=== PATIENT | female | born 1990 | race Two or more races ===

== ENCOUNTER 2018-01-23 18:36 | Emergency (ER) | payer MEDICAID, SELFPAY ==
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
[2018-01-23 18:43] VITALS: BP 124/65; PULSE 87; RESP 16; TEMP 36.6; O2SAT 100; BMI 17.2
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
[2018-01-23 20:21] VITALS: BP 120/60; PULSE 80; RESP 18; TEMP 36.7; O2SAT 99
== END 2018-01-23 20:21 | disposition home or self-care (01) ==
PROVIDERS: Emergency Provider General Practice; Family Provider Nurse Practitioner Family; PCP Nurse Practitioner Family
DX: S06.0X9A Concussion with loss of consciousness of unspecified duration, initial encounter (principal); S89.92XA Unspecified injury of left lower leg, initial encounter; V29.9XXA Motorcycle rider (driver) (passenger) injured in unspecified traffic accident, initial encounter
CPT/HCPCS: 70450; 73030; 73080; 73562; 99281

== ENCOUNTER → 2018-06-25 12:02 | Outpatient (REF) | payer MEDICAID, SELFPAY ==
[2018-06-25 19:13] LABS: Basophils % 0.5 % (0.1-2.0); Eosinophils # 0.1 K/mm3 (0.0-0.4); Eosinophils % 1.7 % (0.1-12.0); Hematocrit 35.3 % (37.0-47.0); Hemoglobin 10.7 g/dL (12.2-16.2); Lymphocytes # 1.7 K/mm3 (0.7-4.5); Lymphocytes % 27.4 K/mm3 (10-50); Mean Corpuscular HGB Conc 30.3 g/dL (31.8-35.4); Mean Corpuscular Hemoglobin 23.6 pg (27.0-31.2); Mean Corpuscular Volume 77.8 fl (81-99); Mean Platelet Volume 9.5 fl (7.4-10.4); Monocytes # 0.4 K/mm3 (0.1-1.0); Neutrophils % 64.4 % (37.0-80.0); Platelet Count 276 K/mm3 (142-424); Red Blood Count 4.54 M/mm3 (4.20-5.40); Red Cell Distribution Width 15.3 % (11.5-17.5); White Blood Count 6.2 K/mm3 (4.8-10.8)
[2018-06-25 19:45] LABS: HCG,Quantitative 0 mIU/mL
[2018-06-25 20:43] LABS: Alanine Aminotransferase 28 U/L (12-78); Albumin/Globulin Ratio 1.1 (1.1-1.8); Alkaline Phosphatase 70 U/L (46-116); Anion Gap 9.9 mEq/L (5-15); Aspartate Amino Transferase 17 U/L (15-37); Bilirubin,Total 1.2 mg/dL (0.2-1.0); Blood Urea Nitrogen 7 mg/dL (7-18); Carbon Dioxide 26 mmol/L (21.0-32.0); Chloride 106 mmol/L (98-107); Creatinine,Serum 0.54 mg/dL (0.55-1.02); Estimated Glomerular Filt Rate 133 ml/min (>60); GFR (African American) 162 ML/MIN (>60); Globulin 3.7 gm/dl (1.3-3.2); Glucose 85 mg/dL (74-106); Potassium 3.9 mmoL/L (3.5-5.1); Sodium 138 mmol/L (136-145); T4 (Thyroxine) 7.8 ug/dl (4.7-13.3); Thyroid Stimulating Hormone 1.56 uIU/ml (0.358-3.740); Total Protein,Serum 7.7 gm/dL (6.4-8.2)
[2018-06-27 18:04] LABS: Prolactin 15.3 ng/mL (4.8-23.3)
== END ==
LOC: LAB 12:02
PROVIDERS: Visit Provider Nurse Practitioner Family
DX: N64.4 Mastodynia (principal); N64.89 Other specified disorders of breast; R53.83 Other fatigue; R52 Pain, unspecified
CPT/HCPCS: 80053; 84146; 84436; 84443; 84702; 85025

== ENCOUNTER → 2018-06-26 09:52 | Outpatient (CLI) | payer MEDICAID, SELFPAY ==
--- NOTE | 2018-06-26 09:53 | US_ITS ---
US breast LT complete INDICATION: Left breast engorgement with pain. No discrete mass ORDERING PHYSICIAN: Birgit Cook PATIENT AGE: 28 years COMPARISON: None TECHNIQUE: Left breast ultrasound with axilla FINDINGS: Echodense tissue noted. No discrete mass or cyst. No ductal dilatation. Small nodes are present in the axilla. IMPRESSION: Negative left breast ultrasound BI-RADS Category: 1 Negative No sonographic abnormalities are evident. If symptoms persist and if there are palpable abnormalities then, mammography may be of further value. (A letter has been sent to the patient regarding results of the study.)
== END ==
PROVIDERS: Family Provider Nurse Practitioner Family; PCP Nurse Practitioner Family; Visit Provider Nurse Practitioner Family
DX: N64.4 Mastodynia (principal)
CPT/HCPCS: 76641

== ENCOUNTER → 2019-12-13 16:45 | Outpatient (CLI) | payer OTHER, SELFPAY ==
[2019-12-13 17:06] LABS: Basophils % 0.6 % (0.1-2.0); Eosinophils # 0.1 K/mm3 (0.0-0.4); Eosinophils % 1.6 % (0.1-12.0); Hematocrit 28.8 % (37.0-47.0); Hemoglobin 8.3 g/dL (12.2-16.2); Lymphocytes % 28.6 % (10-50); Mean Corpuscular HGB Conc 28.8 g/dL (31.8-35.4); Mean Corpuscular Hemoglobin 20.3 pg (27.0-31.2); Mean Corpuscular Volume 70.4 fl (81-99); Mean Platelet Volume 9.3 fl (7.4-10.4); Monocytes # 0.3 K/mm3 (0.1-1.0); Monocytes % 4.3 % (1.7-9.3); Neutrophils # 4.6 K/mm3 (1.8-7.8); Neutrophils % 64.8 % (37.0-80.0); Platelet Count 238 K/mm3 (142-424); Red Cell Distribution Width 17.4 % (11.5-17.5)
[2019-12-15 10:29] LABS: Rapid Plasma Reagin Ab Titer Non Reactive (NonRea<1:1)
[2019-12-15 18:18] LABS: HIV Screen 4th Generation wRfx Non Reactive (Non Reactive); Hepatitis B Surface Antigen Negative (Negative); Hepatitis C Antibody <0.1 s/co ratio (0.0-0.9)
== END ==
PROVIDERS: Visit Provider Nurse Practitioner Obstetrics & Gynecology
DX: Z34.90 Encounter for supervision of normal pregnancy, unspecified, unspecified trimester (principal); Z3A.01 Less than 8 weeks gestation of pregnancy
CPT/HCPCS: 36415; 85025; 86592; 86703; 86762; 86850; 87340; 87380; G0432

== ENCOUNTER → 2019-12-28 14:19 | Outpatient (CLI) | payer OTHER, SELFPAY ==
--- NOTE | 2019-12-28 14:20 | US_ITS ---
PROCEDURE: US OB TRANSVAGINAL CLINICAL INDICATION: US OB Dates COMPARISON: PTV US PELVIS-TRANSVAGINAL ONLY from 12/08/2013 FINDINGS: An intrauterine gestational sac is present with a pole with a crown-rump length of 3.93cm correlating to gestational age of 10weeks 6days. heart tones are present with an FHR of 169bpm. Yolk sac is noted. IMPRESSION: There is a single live intrauterine gestation at 10 weeks 6 days. Estimated due date by Ultrasound is 07/19/2020 Dictated by: Schuyler Duke MD 12/28/2019 19:50 Electronically signed by Schuyler Duke MD in [place] 12/28/2019 19:50
== END ==
PROVIDERS: PCP Nurse Practitioner Family; Visit Provider Nurse Practitioner Obstetrics & Gynecology
DX: O26.841 Uterine size-date discrepancy, first trimester (principal)
CPT/HCPCS: 76801; 76817

== ENCOUNTER → 2020-02-28 12:55 | Outpatient (CLI) | payer OTHER, SELFPAY ==
--- NOTE | 2020-02-28 12:57 | US_ITS ---
PROCEDURE: US OB /MATERNAL DETAIL CLINICAL INDICATION: 20 weeks gestation COMPARISON: US OB TRANSVAGINAL from 12/28/2019 FINDINGS: Single viable intrauterine gestation. Cephalic position. Placenta: Anteriorplacenta grade 1. There is average amount fluid. The cervix appears satisfactory. Closed and measuring 4.6 cm transabdominal in length. Complete survey performed and was unremarkable on the submitted images as in PACS. No discrete anomalies identified on survey imaging by technologist. Active fetus. Three-vessel cord with satisfactory umbilical cord insertion. 4- chamber heart noted. Survey of brain & ventricles Unremarkable. Face and neck survey unremarkable. Diaphragm and chest views unremarkable. Abdomen: Both kidneys noted and unremarkable. Stomach noted and satisfactory. Spine: Survey of the spine satisfactory with no anomalies identified nor imaged. Both arms and legs noted. Amniotic Fluid: Adequate. Maternal adnexa: No significant findings. Measurements: Average ultrasound age 20weeks. Gestational Age 19 weeks 5 days Estimated due date by ultrasound age 0807/17/2020. Estimated weight 310g BPD = 20weeks 2days OFD = 20 weeks 3 days HC = 19weeks 4days AC = 19weeks 5days FL = 20weeks Growth Percentile= 47% Heart Rate = 165bpm Cerebellum = 20weeks 2days Humerus = 20weeks 4days HC/AC is 1.19 CI is 0.78 FL/BPD is 0.68 FL/AC is 0.22 IMPRESSION: There is a single live IUP at 20 weeks 0 days. heart body motion noted. All parameters correlate with no obvious anomalies. Please see above for detail Dictated by: Schuyler Duke MD 02/28/2020 14:43 Electronically signed by Schuyler Duke MD in [place] 02/28/2020 14:43
== END ==
PROVIDERS: PCP Nurse Practitioner Family; Visit Provider Nurse Practitioner Obstetrics & Gynecology
DX: Z34.90 Encounter for supervision of normal pregnancy, unspecified, unspecified trimester (principal)
CPT/HCPCS: 76811

== ENCOUNTER → 2020-04-21 09:16 | Outpatient (CLI) | payer OTHER, SELFPAY ==
[2020-04-21 09:55] LABS: Glucose,Fasting 88 mg/dl (74-100)
[2020-04-21 13:37] LABS: Glucose 1 Hour 95 mg/dL (74-100)
== END ==
PROVIDERS: Visit Provider Nurse Practitioner Obstetrics & Gynecology
DX: Z34.90 Encounter for supervision of normal pregnancy, unspecified, unspecified trimester (principal)
CPT/HCPCS: 36415; 82951

== ENCOUNTER → 2020-06-14 10:27 | Outpatient (CLI) | payer OTHER, SELFPAY ==
--- NOTE | 2020-06-14 10:27 | US_ITS ---
PROCEDURE: US OB BPP W/FET-MAT S/D CLINICAL INDICATION: Measuring Small Small for gestational age COMPARISON: US OB /MATERNAL DETAIL from 02/28/2020 FINDINGS: There is a single live fetus which is in cephalic presentation. The cervix is closed measuring 4 cm transabdominal. Placenta is anterior and grade 2. MAGUE is normal at 10 cm. Biophysical profile is 8 of 8 Measurements: Average ultrasound age 35weeks 1day. Gestational Age 35 weeks 0 days Estimated due date by ultrasound age 0807/18/2020. Estimated weight 2,551g BPD = 35weeks 4days OFD = !Error HC = 35weeks 3days AC = 35weeks 1day FL = 34weeks 2days Growth Percentile= 45% Heart Rate = 130bpm Cerebellum = Humerus = HC/AC is 1.01 CI is 0.79 FL/BPD is 0.76 FL/AC is 0.21 IMPRESSION: Live IUP in cephalic presentation with an average ultrasound age of 35 weeks 1 day. Estimated weight is 2551 g which is 45 percentile. Biophysical profile is 8 of 8 with an MAGUE of 10 cm. Placenta is anterior and grade 2. Dictated by: Schuyler Duke MD 06/14/2020 15:19 Electronically signed by Schuyler Duke MD in [place] 06/14/2020 15:19
== END ==
PROVIDERS: PCP Nurse Practitioner Family; Visit Provider Nurse Practitioner Obstetrics & Gynecology
DX: O36.5990 Maternal care for other known or suspected poor fetal growth, unspecified trimester, not applicable or unspecified (principal)
CPT/HCPCS: 76811; 76816; 76819; 76820

== ENCOUNTER → 2020-06-22 16:06 | Outpatient (CLI) | payer OTHER, SELFPAY | PROVIDERS: Visit Provider Nurse Practitioner Obstetrics & Gynecology | DX: Z34.90 Encounter for supervision of normal pregnancy, unspecified, unspecified trimester (principal) | CPT/HCPCS: 86403 ==

== ENCOUNTER 2020-07-17 05:08 | Inpatient (IN) | payer OTHER, SELFPAY ==
[2020-07-17 05:15] VITALS: BMI 31.0
[2020-07-17 06:27] LABS: Microscopic, Urine URINE MICROSCOPIC (MICROSCOPIC)
[2020-07-17 06:38] LABS: Basophils % 0.3 % (0.1-2.0); Eosinophils # 0.2 K/mm3 (0.0-0.4); Eosinophils % 2.4 % (0.1-12.0); Hematocrit 39.7 % (37.0-47.0); Hemoglobin 13.7 g/dL (12.2-16.2); Lymphocytes # 1.8 K/mm3 (0.7-4.5); Mean Corpuscular HGB Conc 34.6 g/dL (31.8-35.4); Mean Corpuscular Hemoglobin 33.7 pg (27.0-31.2); Mean Corpuscular Volume 97.4 fl (81-99); Mean Platelet Volume 9.6 fl (7.4-10.4); Monocytes # 0.4 K/mm3 (0.1-1.0); Monocytes % 5.6 % (1.7-9.3); Neutrophils # 4.8 K/mm3 (1.8-7.8); Neutrophils % 66.7 % (37.0-80.0); Platelet Count 141 K/mm3 (142-424); Red Blood Count 4.08 M/mm3 (4.20-5.40); Red Cell Distribution Width 14.5 % (11.5-17.5); White Blood Count 7.2 K/mm3 (4.8-10.8)
[2020-07-17 06:49] LABS: Appearance,Urine CLEAR (Clear); Bilirubin,Urine Negative (Negative); Blood, Urine Negative (Negative); Color,Urine YELLOW (Yellow); Glucose,Urine (UA) Negative (Negative); Ketones,Urine Negative (Negative); Leukocyte Esterase,Urine 1+ (Negative); Nitrate,Urine Negative (Negative); Protein,Urine Negative (Negative); Specific Gravity, Urine <= 1.005 (1.005-1.030); Urobilinogen,Urine 0.2 EU/dl (0.2)
[2020-07-17 07:04] LABS: Amphetamine/Metha Screen,Urine Negative ng/ml (<1000)
[2020-07-17 07:05] LABS: Barbiturates Screen,Urine Negative ng/ml (<200); Benzodiazepines Screen,Urine Negative ng/ml (<200); Coronavirus 19 IgG Antibody Negative (Negative); Coronavirus 19 IgM Antibody Negative (Negative)
[2020-07-17 07:06] LABS: Cannabinoid Screen,Urine Negative ng/ml (<50); Cocaine Screen,Urine Negative ng/ml (<300)
[2020-07-17 07:07] LABS: Methadone Screen,Urine Negative ng/ml (<300)
[2020-07-17 07:08] LABS: Opiate Screen,Urine Negative ng/ml (<300); Phencyclidine Screen,Urine Negative ng/ml (<25)
[2020-07-17 07:16] LABS: Bacteria,Urine 1+ /lpf; RBC,Urine Occasional #/hpf (0-3); Squamous Epithelial Cell,Urine 20-50 #/hpf (0-5)
[2020-07-17 07:27] VITALS: BP 121/66; PULSE 75; RESP 18; TEMP 36.5; O2SAT 97
[2020-07-17 07:43] VITALS: BP 112/68; PULSE 82; RESP 18; TEMP 36.7; O2SAT 98; BMI 31.0
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
--- NOTE | 2020-07-17 09:18 | HMH.LABNOT ---
Labor Note - Subjective: Date: 07/17/20 Time: 09:18 regular contraction - Objective: NST:: Reactive Contractions:: every 2-3 minutes Cervical Dilation:: 3-4 Effacement:: 75% Station: -2 Membranes: artificially ruptured - Fetus: Monitoring?: Yes monitoring type:: External - Assessment: Labor progressing?: Yes Cephalopelvic disproportion?: No Patient Problems: All Active Problems (Acute) - Plan: Anesthesia for epidural?: Yes Continue to labor down?: Yes Plan for ?: No Continue to monitor?: Yes Start pushing?: No Comment:: I ruptured her membranes and there was clear fluid. We will expect a vaginal delivery.
--- NOTE | 2020-07-17 11:23 | HMH.LABNOT ---
Labor Note - Subjective: Date: 07/17/20 Time: 11:23 regular contraction - Objective: NST:: Reactive Contractions:: every 2-3 minutes Cervical Dilation:: 4-5 Effacement:: 75% Station: -1 Membranes: artificially ruptured - Fetus: Monitoring?: Yes monitoring type:: External - Assessment: Labor progressing?: Yes Cephalopelvic disproportion?: No Patient Problems: All Active Problems (Acute) - Plan: Anesthesia for epidural?: No Continue to labor down?: Yes Plan for ?: No Continue to monitor?: Yes Start pushing?: No Comment:: She is progressing well. Nonstress test is reactive. She is having regular painful contractions.
[2020-07-17 13:54] LABS: Cord Blood PH 7.38 (7.35-7.45)
--- NOTE | 2020-07-17 13:57 | HMH.DN ---
- Delivery Note Delivery Date:: 07/17/20 Delivery Time:: 13:34 Anesthesia Type: None Was labor medically induced?: Yes Induction method: per pitocin protocol Gestational age (weeks): 39 Infant delivered prior to 39 weeks?: No Infant Gender: Female at 1 minute: 8 at 5 minutes: 9 LAC or MLE?: LAC Delivery Procedure:: She is a 30-year-old 1 para 1 aborta 1 who was 39+ weeks gestational age. She has had a previous large for gestational age with 1/4 degree tear. As result that we elected to induce her labor at 39 weeks. She was started on IV oxytocin had her membranes ruptured. She progressed to full dilation and delivered spontaneously a liveborn female child at 1:34 PM in the afternoon of July 17, 2020. On deliver the head there was a loose nuchal cord which was easily reduced. This was followed by the anterior shoulder and the rest the infant's body atraumatically. The oropharynx and nasopharynx were bulb suctioned. The baby was vigorous. We allowed the cord to continue to pulsate for approximately 1 minute. The cord was then doubly clamped and cut and the was placed on the mother's abdomen for further care. The nurses assigned Apgars of 8 at 1 minute and 9 at 5 minutes. We then obtained cord blood as well as cord pH. pH was 7.38. Using gentle traction on the cord and countertraction on the fundus I was able to easily deliver the placenta intact. Had normal three-vessel cord. There was a first-degree perineal laceration that was repaired with interrupted 3-0 Vicryl Rapide suture. She also had a left labial tear that was repaired with 3-0 Vicryl Rapide suture. I infiltrated the areas with 30 cc of 1% Xylocaine. She has O+ blood, she is rubella immune and was group B streptococcus negative. She plans to breast-feed. Her residential recycle driver Dr. Núñez. Estimated blood loss was 1200 cc. Laceration:: vaginal Placental Delivery Description: Spontaneous
[2020-07-17 16:36] VITALS: BP 105/59; PULSE 77; RESP 18; TEMP 36.6; O2SAT 98
[2020-07-18 06:28] LABS: Hematocrit 33.9 % (37.0-47.0); Hemoglobin 11.6 g/dL (12.2-16.2)
[2020-07-18 08:25] VITALS: BP 103/53; PULSE 87; RESP 18; TEMP 36.7; O2SAT 97
--- NOTE | 2020-07-18 08:28 | HMH.ACPN2 ---
Internal Medicine - PN: Subj *Date: 07/18/20 *Time: 08:28 Interval history: She is doing very well. She is breast-feeding. Her lochia is normal. Her hemoglobin is stable. Exam Vital signs and Labs for Last 24 Hours: Temp Pulse Resp BP Pulse Ox 97.9 F 77 18 105/59 L 98 07/17/20 16:36 07/17/20 16:36 07/17/20 16:36 07/17/20 16:36 07/17/20 16:36 Laboratory Results - last 24 hr 07/17/20 13:49: Cord ABG pH 7.38 07/18/20 06:00: Hgb 11.6 L, Hct 33.9 L I & O for Last 24 hours: Intake & Output 07/15/20 07/16/20 07/17/20 07/18/20 11:59 11:59 11:59 11:59 Weight 159 lb Microbiology Reports for the Last 24 Hours: Microbiology 07/17/20 05:42 Urine,Clean Catch Urine Culture - Preliminary NO GROWTH AFTER 24 HOURS - Constitutional no acute distress - *Routine HEENT Exam Head: Present: normocephalic Eye: Present: EOMI, PERRL ENT: Present: mucous membranes moist Assessment and Plan (1) Normal delivery Current visit: Yes Status: Acute Category: Medical Code(s): O80 - Encounter for full-term uncomplicated delivery - Assessment and plan all Dx Assessment and Plan for all problems:: She is doing very well this morning. We will plan to send her home tomorrow.
[2020-07-18 12:11] VITALS: BP 109/59; PULSE 96; RESP 18; TEMP 36.5; O2SAT 98
[2020-07-18 16:00] VITALS: BP 104/58; PULSE 80; RESP 18; TEMP 36.9; O2SAT 98
[2020-07-19 08:30] VITALS: BP 106/60; PULSE 89; RESP 20; TEMP 36.7; O2SAT 100
--- NOTE | 2020-07-19 10:04 | HMH.OBDCSM ---
General - General Admission date:: 07/17/20 Discharge date: 07/19/20 HPI - History of Present Illness History of present illness: She is a 30-year-old 3 now para 2 aborta 1 who is 39 and 5 weeks gestational age. She had a previous fourth degree tear and a large baby so we elected to deliver her at term. Hospital Course Hospital Course: She was started on IV oxytocin had her membranes ruptured. She progressed to full dilation and delivered spontaneously a liveborn female child at 1:34 PM in the afternoon of July 17, 2020. The baby weighed 7 pounds 12 ounces and was 19 inches long. She had Apgars of 8 at 1 minute and 9 at 5 minutes. She has done well and has remained afebrile throughout her hospitalization. She is eating and drinking and ambulating. She is breast-feeding. She has O+ blood, she is rubella immune and was group B streptococcus negative. Her behavioral health clinician is Dr. Núñez. She is discharged home to follow-up with me in approximately 2 weeks time. She will continue with her vitamins and iron. She was given the usual instructions with respect to limiting her activity, driving and sexual activity. Her condition on discharge is stable and improved Rhogam Administration: Not Indicated Objective Vital signs: Temp Pulse Resp BP Pulse Ox 98.4 F 80 18 104/58 L 98 07/18/20 16:00 07/18/20 16:00 07/18/20 16:00 07/18/20 16:00 07/18/20 16:00 no acute distress - *Routine HEENT Exam Head: Present: normocephalic Eye: Present: EOMI, PERRL ENT: Present: mucous membranes moist DS: Diagnosis - Discharge Diagnosis (1) Normal delivery Status: Acute Discharge Plan - Patient Discharge Instructions ACTIVITY: No heavy lifting DIET: continue same diet Additional Instructions: No heavy lifting, no driving for 2 weeks, nothing in the vagina for 6 weeks. Patient Instructions: Depression, Hemorrhage, DI for Labor and Delivery, Vaginal , DI for Pre-eclampsia, [facility] Post Discharge Instructions, Preventing the Spread of Coronavirus Discharge Instructions - Follow up Plan Follow up with: Timur Mendoza MD [Staff Physician] - 08/09/20 11:00 am Disposition: Home, Self-[facility] Medications: Home Medications Medication Instructions Recorded Confirmed Type Ferrous Sulfate 325 mg PO BID 07/17/20 07/17/20 History Pnv,Calcium 72/Iron,Carb/Folic 1 tab PO DAILY 07/17/20 07/17/20 History [ Plus] Prescriptions/Medication Reconciliation: Continued Pnv,Calcium 72/Iron,Carb/Folic [ Plus] 1 tab PO DAILY Ferrous Sulfate 325 mg PO BID - Problem Reconciliation Problems Reviewed?: Yes
== END 2020-07-19 10:25 | disposition home or self-care (01) | DRG 807 ==
PROVIDERS: Admitting Provider Nurse Practitioner Obstetrics & Gynecology; PCP Nurse Practitioner Family; Visit Provider Nurse Practitioner Obstetrics & Gynecology
DX: O70.0 First degree perineal laceration during delivery (principal); Z37.0 Single live birth; Z3A.39 39 weeks gestation of pregnancy
CPT/HCPCS: 59409; 36415; 59025; 80305; 81001; 82800; 85014; 85018; 85025; 86328; 86850; 87086

== ENCOUNTER 2021-09-25 14:24 | Emergency (ER) | payer OTHER, SELFPAY ==
[2021-09-25 16:01] VITALS: BP 128/73; PULSE 83; RESP 20; TEMP 36.8; O2SAT 99; BMI 23.0
--- NOTE | 2021-09-25 16:13 | HMH.EDUTC ---
[facility] [place] Clinical Impression: Acute bronchitis Qualifiers: Bronchitis organism: unspecified organism Qualified Code(s): J20.9 - Acute bronchitis, unspecified Disposition: Home, Self-Care Condition on Discharge: Good Instructions: Acute Bronchitis, DI for Acute Bronchitis Additional Instructions: Drink plenty of fluids. Take tylenol or ibuprofen for pain or fever. Take the medications as directed. Follow up with your regular doctor. GO TO THE ER FOR ANY WORSENING SYMPTOMS Quarantine until you know the results of your covid-19 test. If it is positive, the health department should call you and give you further instructions about your length of Quarantine and other things. Notify your school or workplace of your results and follow their instructions regarding return to work/school. Prescriptions: Albuterol Sulfate [Albuterol Sulfate Hfa] 2 puffs IH Q6HP PRN 30 Days #1 each PRN Reason: Shortness Of Breath Transmission Status: Received by DISKOVRe predniSONE [Prednisone 20mg Tab] 20 mg PO BID 4 Days #8 tab Transmission Status: Received by DISKOVRe Azithromycin [Z-Rizwan 250mg Tab*] 250 mg PO UD DOSE PK #6 tab Transmission Status: Received by DISKOVRe Referrals: Birgit Cook APRN [Primary Care Provider] - Forms: Work/School Release Time of Disposition: 17:07 Medical Decision Making - Medical Records Medical records reviewed: No: I reviewed the patient's medical records. - Black Inquiry Pt receiving controlled substance: No Vital Signs: 09/25/21 16:01 09/25/21 17:33 Temperature 98.2 F 98.2 F Temperature Source Oral Pulse Rate 83 Pulse Rate [Left] 83 Respiratory Rate 20 18 Blood Pressure 128/73 Blood Pressure [Right Arm] 128/73 Blood Pressure Mean [Right Arm] 91 02 Sat by Pulse Oximetry 99 - Lab Data Lab results reviewed: Yes: I reviewed the patient's lab results. Orders (Tests/Meds): ORDERS Category Date Time Status Chest XR 2 view (NOT portable) [XR chest 2V] Stat Exams 09/25/21 16:14 Taken - Radiology Data #1 Image(s): Chest Image Reviewed: Yes I reviewed the patient's radiology image, Yes I have reviewed radiologist's interpretation Preliminary Findings: No Infiltrates [place]en [facility] [place] - General Stated complaint: pain w/breathing, fever, cough Time Seen by Provider: 09/25/21 17:02 Mode of Arrival: Ambulatory Source of Information: Patient Limitations: No Limitations Description of Symptoms (Recalled from Triage Doc. by RN): pt c/o of soa since last night. pt states she is unable to take deep breathes and gets winded when trying to talk. pt also c/o a JOHN[place] HEENT Symptoms (Recalled from RN notes): Yes (J[place]ST[place]) Resp Symptoms (Recalled from RN notes): Yes (SOA) Skin Symptoms (Recalled from RN notes): No MS Symptoms (Recalled from RN notes): No Functional Status (Recalled from RN notes): na - History of Present Illness Provider Complaint: She states that for the past 2 days she has had chest tightness, a cough and she has had trouble breathing deep. She states that she gets out of breath very easily. She denies any fever, chills, or sore throat. - Related Data Previous Rx's Medication Instructions Recorded nitrofurantoin 100 mg PO BID #20 cap 04/13/21 monohydrate/macrocrystals 100 mg capsule ferrous sulfate 325 mg (65 mg See Rx Instructions .ROUTE 08/09/21 iron) tablet .COMPLEX #60 tablet Albuterol Sulfate [Albuterol 2 puffs IH Q6HP PRN 30 Days #1 each 09/25/21 Sulfate Hfa] Azithromycin [Z-Rizwan 250mg Tab*] 250 mg PO UD DOSE PK #6 tab 09/25/21 predniSONE [Prednisone 20mg 20 mg PO BID 4 Days #8 tab 09/25/21 Tab] Allergies Allergy/AdvReac Type Severity Reaction Status Date / Time No Known Allergies Allergy Verified 09/04/20 14:45 - Worker's Comp Is this a Worker's Comp case?: No [facility] History - Hepatitis A Screen Drug use history?: No High risk sexual behaviors?: No History of
--- NOTE | 2021-09-25 16:14 | XR_ITS ---
PROCEDURE: XR CHEST 2V CLINICAL HISTORY: soa COMPARISON: No exams were available for comparison FINDINGS: The cardiomediastinal silhouette and pulmonary vascularity are within normal limits. The lungs are clear without infiltrates, suspicious nodules, or pleural effusions. Minimal lumbar curvature convex right IMPRESSION: No acute findings. Dictated by: Schuyler Duke MD 09/26/2021 16:10 Schuyler Duke MD in OV 09/26/2021 16:10
[2021-09-25 17:33] VITALS: BP 128/73; PULSE 83; RESP 18; TEMP 36.8
== END 2021-09-25 17:35 | disposition home or self-care (01) ==
PROVIDERS: Emergency Provider Nurse Practitioner Family; PCP Nurse Practitioner Family
DX: J20.9 Acute bronchitis, unspecified (principal); Z20.822 Contact with and (suspected) exposure to COVID-19
CPT/HCPCS: 71046; 99202; G0463

== ENCOUNTER → 2021-09-25 14:57 | Outpatient (CLI) | payer OTHER, SELFPAY | PROVIDERS: PCP Nurse Practitioner Family; Visit Provider Nurse Practitioner | DX: Z20.822 Contact with and (suspected) exposure to COVID-19 (principal) | CPT/HCPCS: C9803; U0003; U0005 ==

== ENCOUNTER → 2023-04-30 15:11 | Outpatient (CLI) | payer OTHER, SELFPAY ==
[2023-04-30 16:45] LABS: Basophils % 0.6 % (0.1-2.0); Eosinophils # 0.3 K/mm3 (0.0-0.4); Eosinophils % 3.7 % (0.1-12.0); Hematocrit 32.7 % (37.0-47.0); Hemoglobin 9.7 g/dL (12.2-16.2); Lymphocytes # 2.2 K/mm3 (0.7-4.5); Lymphocytes % 32.3 % (10-50); Mean Corpuscular HGB Conc 29.7 g/dL (31.8-35.4); Mean Corpuscular Hemoglobin 21.2 pg (27.0-31.2); Mean Corpuscular Volume 71.4 fl (81-99); Mean Platelet Volume 9.2 fl (7.4-10.4); Monocytes # 0.4 K/mm3 (0.1-1.0); Monocytes % 5.5 % (1.7-9.3); Neutrophils % 57.9 % (37.0-80.0); Platelet Count 285 K/mm3 (142-424); Red Blood Count 4.58 M/mm3 (4.20-5.40); Red Cell Distribution Width 17.1 % (11.5-17.5); White Blood Count 6.8 K/mm3 (4.8-10.8)
[2023-04-30 17:08] LABS: Triiodothryronine (T3) Uptake 31 % (23.5-40.5)
[2023-04-30 17:22] LABS: Thyroid Stimulating Hormone 1.38 uIU/mL (0.465-4.68)
[2023-04-30 17:41] LABS: Vitamin B12 233 pg/mL (239-931)
[2023-05-01 09:32] LABS: Iron 23 ug/dL (37-170)
[2023-05-01 09:41] LABS: Total Iron Binding Capacity 450 ug/dL (265-497)
[2023-05-02 09:19] LABS: LH 10.8 mIU/mL (.)
[2023-05-02 10:52] LABS: Free Thyroxine Index 2.3 ug/dL (5.93-13.13); T4 (Thyroxine) 7.3 ug/dl (5.53-11.0)
[2023-05-02 14:22] LABS: FSH 8.5 mIU/mL (.)
== END ==
PROVIDERS: Visit Provider Nurse Practitioner Obstetrics & Gynecology
DX: R53.83 Other fatigue (principal); R06.02 Shortness of breath; E55.9 Vitamin D deficiency, unspecified
CPT/HCPCS: 36415; 82306; 82607; 83001; 83002; 83540; 83550; 84436; 84443; 84479; 85025

== ENCOUNTER 2023-05-08 10:53 | Outpatient (CLI) | payer OTHER, SELFPAY ==
[2023-05-08 11:15] VITALS: BP 115/73; PULSE 89; RESP 18; TEMP 36.8; O2SAT 100
--- NOTE | 2023-05-08 12:00 | PC.NURSE ---
1200-gave vitamin b 12 1000mcg im in right deltoid per jan. pt tolerated injection without issue.
[2023-05-08 12:05] VITALS: BP 120/72; PULSE 75; RESP 18; TEMP 36.8; O2SAT 99
== END 2023-05-08 12:05 | disposition home or self-care (01) ==
LOC: INF 10:55
PROVIDERS: Visit Provider Nurse Practitioner Obstetrics & Gynecology
DX: D64.9 Anemia, unspecified (principal)
CPT/HCPCS: 96365; 96372; J1439

== ENCOUNTER 2023-05-15 10:42 | Outpatient (CLI) | payer OTHER, SELFPAY ==
[2023-05-15 11:12] VITALS: BP 102/68; PULSE 72; RESP 18; O2SAT 100
[2023-05-15 11:52] VITALS: BP 110/65; PULSE 76; O2SAT 99
== END 2023-05-15 11:52 | disposition home or self-care (01) ==
LOC: INF 10:42
PROVIDERS: Visit Provider Nurse Practitioner Obstetrics & Gynecology
DX: R06.02 Shortness of breath (principal); N92.6 Irregular menstruation, unspecified; D64.9 Anemia, unspecified; R53.83 Other fatigue
CPT/HCPCS: 96365; J1439

== ENCOUNTER 2023-11-19 14:28 | Emergency (ER) | payer OTHER, SELFPAY ==
[2023-11-19 14:30] VITALS: BP 105/64; PULSE 88; RESP 18; TEMP 36.6; O2SAT 98; BMI 23.1
--- NOTE | 2023-11-19 15:18 | CT_ITS ---
PROCEDURE INFORMATION: Exam: CT Abdomen And Pelvis With Contrast Exam date and time: 11/19/2023 5:54 PM Age: 33 years old Clinical indication: Abdominal pain; Additional info: Intermittent severe bi. Lower abd pain TECHNIQUE: Imaging protocol: Computed tomography of the abdomen and pelvis with contrast. Radiation optimization: All CT scans at this facility use at least one of these dose optimization techniques: automated exposure control; mA and/or kV adjustment per patient size (includes targeted exams where dose is matched to clinical indication); or iterative reconstruction. Contrast material: ISOVUE; Contrast volume: 75 ml; Contrast route: IV; REPORTING DATA: Count of CT and Cardiac NM exams in prior 12 months: This patient has received 0 known CTs and 0 known cardiac nuclear medicine studies in the 12 months prior to the current study. COMPARISON: US OB BPP W/FET-MAT S/D 06/14/2020 10:49 AM FINDINGS: Liver: Normal. No mass. Gallbladder and bile ducts: Normal. No calcified stones. No ductal dilation. Pancreas: Pancreas unremarkable Spleen: The spleen is unremarkable. Adrenal glands: Adrenal glands unremarkable. Kidneys and ureters: No hydronephrosis. Stomach and bowel: Unremarkable. No obstruction. No mucosal thickening. Appendix: Appendix unremarkable Intraperitoneal space: Small amount of free fluid in the cul-de-sac. Vasculature: Unremarkable. No abdominal aortic aneurysm. Lymph nodes: Unremarkable. No enlarged lymph nodes. Urinary bladder: Unremarkable as visualized. Reproductive: Retroverted uterus. Left corpus luteum cyst. Bones/joints: Unremarkable. No acute fracture. Soft tissues: Unremarkable. IMPRESSION: 1. Left corpus luteum cyst. 2. Small amount of free fluid in the cul-de-sac.
--- NOTE | 2023-11-19 15:18 | PC.NURSE ---
Dr. Maguire at [facility] for pt eval
--- NOTE | 2023-11-19 15:19 | ED_ITS ---
Discharge Plan Disposition Patient Disposition: Home, Self-Care Prescriptions Prescriptions: New nitrofurantoin monohyd/m-cryst 100 mg capsule 100 mg PO BID 5 Days Qty: 10 0RF Rx Instructions: must administer with a meal/food No Action cholecalciferol (vitamin D3) [Vitamin D3] 25 mcg (1,000 unit) Tablet 25 mcg PO DAILY ferrous sulfate [FeroSul] 325 mg (65 mg iron) tablet 325 mg PO DAILY Referrals Follow up/Referrals: Provider,Referral, MD [Referring] - See instructions Clinical Impressions Clinical Impression: Ovarian cyst rupture, UTI (urinary tract infection) Instructions Patient Instructions: DI for Low Back Pain Discharge ED Provider: Jony Elias General Adult HPI General Chief complaint: Back Pain/Injury Stated complaint: sharp stabbing pain in lower back Time Seen by Provider: 11/19/23 15:12 Mode of Arrival: Ambulatory Source of Information: Patient Limitations: No Limitations Description of Symptoms (Recalled from ER Triage Doc. by RN): Patient reports having lower back pain off and on for a couple weeks and now feels like it is coming into the right and left lower quadrants denies any known injury. Patient denies fever, nausea, and vomiting. History of Present Illness HPI narrative: Patient is a 33-year-old female presenting today with intermittent severe bilateral lower abdominal pain and flank pain. States there is no laterality to this at all. No history of kidney stones no vaginal bleeding vaginal discharge urinary symptoms including urinary urgency burning frequency hesitancy etc. No hematuria. Denies any constipation or diarrhea. No fevers or chills. States the pain is currently a 3-4 but intermittently will become a 9/10 and is unbea rable. Related Data Home Medications Medication Instructions Recorded Confirmed cholecalciferol (vitamin D3) 25 25 mcg PO DAILY Supplement 05/08/23 07/01/23 mcg (1,000 unit) tablet (Vitamin D3) ferrous sulfate 325 mg (65 mg 325 mg PO DAILY Supplement 05/08/23 07/01/23 iron) tablet (FeroSul) Previous Rx's Medication Instructions Recorded nitrofurantoin 100 mg PO BID 5 days #10 caps 11/19/23 monohydrate/macrocrystals 100 mg capsule Allergies Allergy/AdvReac Type Severity Reaction Status Date / Time No Known Allergies Allergy Verified 07/01/23 10:08 [facility] Disclaimer: The information contained in this section may have been updated after the patient was seen, as this information can be updated by other users. Social History Smoking Status: Never smoker alcohol intake: never substance use type: denies use current occupational status: employed Travel in the last 8 weeks: None ROS Obtained: Yes All systems reviewed & no additional complaints except as documented Physical Exam General General appearance: alert Respiratory Respiratory exam: Present normal lung sounds bilaterally Cardiovascular Cardiovascular exam: Present regular rate; Absent tachycardia Abdominal Exam Abdominal exam: Present soft and tenderness (She is tender bilateral lower quadrants no rebound or guarding ) Back Exam Back exam: Absent CVA tenderness (R) or CVA tenderness (L) Neurological Exam Neurological exam: Present alert and oriented X3 Medical Decision Making Black Inquiry Pt receiving controlled substance: No Vital Signs: 11/19/23 14:30 Temperature 97.8 F Temperature Source Oral Pulse Rate [Right] 88 Respiratory Rate 18 Blood Pressure [Right Arm] 105/64 L Blood Pressure Mean [Right Arm] 77 Blood Pressure Source [Right Arm] Automatic Cuff 02 Sat by Pulse Oximetry 98 Oxygen Delivery Method Room Air Lab Data Lab results reviewed: Yes I reviewed the patient's lab results. Lab Results 11/19/23 14:50: Urine Color Yellow, Urine Appearance Clear, Urine pH 6.0, Ur Spe cific [place] 1.015, Urine Protein Negative, Urine Glucose (UA) Negative, Urine Ketones Negative, Urine Blood Trace-i, Urine Nitrate Negative, Urine Bilirubin Negative, Urine Urobilinogen 0.2, Ur Leukocyte Esterase 3+ A, Urine RBC Occasional, Urine WBC 10-20, Ur Squamous Epith Cells 3-5, Urine Bacteria None 11/19/23 16:15: WBC 6.5, RBC 4.47, Hgb 13.7, Hct 39.9, MCV 89.4, MCH 30.8, MCHC 34.4, RDW 12.6, Plt Count 212, MPV 9.6, Neut % (Auto) 58.1, Lymph % (Auto) 33.4, [place] % (Auto) 5.5, Eos % (Auto) 2.5, Baso % (Auto) 0.5, Neut # (Auto) 3.8, Lymph # (Auto) 2.2, [place] # (Auto) 0.4, Eos # (Auto) 0.2, Baso # (Auto) 0.0, Sodium 137, Potassium 3.5, Chloride 104, Carbon Dioxide 27, Anion Gap 9.5, BUN 8, Creatinine 0.60, Estimated Creat Clear 128, Estimated GFR 114, Est GFR ( Amer) 138, Glucose 95, Calcium 9.3, Total Bilirubin 0.6, AST 34, ALT 19, Alkaline Phosphatase 83, Total Protein 8.3 H, Albumin 4.7, Globulin 3.6 H, Albumin/Globulin Ratio 1.3, Serum HCG, Qual Negative 11/19/23 16:15 11/19/23 16:15 Orders (Tests/Meds): ED MEDICATIONS Discontinued Medications Generic Name Dose Route Start Last Admin Trade Name Freq PRN Reason Stop Dose Admin Iopamidol 75 ml 11/19/23 18:00 11/19/23 18:01 Iopamidol-370 (76%);100ml Bottle IV 11/19/23 18:01 75 ml ONCE ONE Administration Sodium Chloride 10 ml 11/19/23 18:00 11/19/23 18:01 Sodium Chloride 0.9% 10ml Syr (Rad Only) IV 11/19/23 18:01 10 ml ONCE ONE Administration ORDERS Category Date Time Status CT abdomen pelvis w con Stat Cat Scan 11/19/23 15:18 Completed CBC w/Auto Diff [Complete Blood Count Auto Diff] Stat Lab 11/19/23 16:15 Co mpleted CMP [Comprehensive Metabolic Panel] Stat Lab 11/19/23 16:15 Completed HCG Qualitative, Serum Stat Lab 11/19/23 16:15 Completed UA [Urinalysis and Microscopic] Stat Lab 11/19/23 14:50 Completed Urine Culture Stat Micro 11/19/23 14:50 Received Medical Decision Narrative: Previously healthy 33-year-old female presented today with intermittent and severe bilateral lower quadrant abdominal pain and flank pain. There is no l aterality to this differential includes kidney stone, ovarian torsion, constipation, ruptured ovarian cyst, diverticulitis, appendicitis, etc. we will get a contrasted CT scan to further evaluate this in addition to basic blood work and urinalysis. Patient has currently refused IV fluids pain medicine nausea medicine will reassess after initial workup is complete. Assessment patient very comfortable and stable serial abdominal exams are benign CT scan is performed which shows free fluid and evidence of a ruptured ovarian cyst. This explains the bilateral lower quadrant abdominal tenderness. She also has a urinary tract infection will treat as cystitis. She has been advised to follow-up with primary care doctor as needed. Critical Care Critical Care Time Critical Care Time: No
[2023-11-19 15:59] LABS: Microscopic, Urine URINE MICROSCOPIC (MICROSCOPIC)
[2023-11-19 16:14] LABS: Appearance,Urine CLEAR (Clear); Bilirubin,Urine Negative (Negative); Blood, Urine TRACE-I (Negative); Color,Urine YELLOW (Yellow); Glucose,Urine (UA) Negative (Negative); Ketones,Urine Negative (Negative); Leukocyte Esterase,Urine 3+ (Negative); Nitrate,Urine Negative (Negative); Protein,Urine Negative (Negative); Specific Gravity, Urine 1.015 (1.005-1.030); Urobilinogen,Urine 0.2 EU/dl (0.2)
[2023-11-19 16:27] LABS: RBC,Urine Occasional #/hpf (0-3)
[2023-11-19 17:04] LABS: Alanine Aminotransferase 19 U/L (12-78); Albumin Level 4.7 g/dl (3.5-5.0); Albumin/Globulin Ratio 1.3 (1.1-1.8); Alkaline Phosphatase 83 U/L (38-126); Anion Gap 9.5 mEq/L (5-15); Aspartate Amino Transferase 34 U/L (14-36); Bilirubin,Total 0.6 mg/dl (0.2-1.3); Blood Urea Nitrogen 8 mg/dl (7-17); Calcium 9.3 mg/dl (8.4-10.2); Carbon Dioxide 27 mmol/L (22.0-30.0); Chloride 104 mmol/L (98-107); Creatinine Clearance Estimated 128 mL/min (50-200); Estimated Glomerular Filt Rate 114 ml/min (>60); GFR (African American) 138 ML/MIN (>60); Globulin 3.6 g/dL (1.3-3.2); Glucose 95 mg/dl (74-100); Potassium 3.5 mmoL/L (3.5-5.1); Sodium 137 mmol/L (136-145); Total Protein,Serum 8.3 g/dl (6.3-8.2)
[2023-11-19 17:08] LABS: Basophils % 0.5 % (0.1-2.0); Eosinophils # 0.2 K/mm3 (0.0-0.4); Eosinophils % 2.5 % (0.1-12.0); Hematocrit 39.9 % (37.0-47.0); Hemoglobin 13.7 g/dL (12.2-16.2); Lymphocytes # 2.2 K/mm3 (0.7-4.5); Lymphocytes % 33.4 % (10-50); Mean Corpuscular HGB Conc 34.4 g/dL (31.8-35.4); Mean Corpuscular Hemoglobin 30.8 pg (27.0-31.2); Mean Corpuscular Volume 89.4 fl (81-99); Mean Platelet Volume 9.6 fl (7.4-10.4); Monocytes # 0.4 K/mm3 (0.1-1.0); Monocytes % 5.5 % (1.7-9.3); Neutrophils # 3.8 K/mm3 (1.8-7.8); Neutrophils % 58.1 % (37.0-80.0); Platelet Count 212 K/mm3 (142-424); Red Blood Count 4.47 M/mm3 (4.20-5.40); Red Cell Distribution Width 12.6 % (11.5-17.5); White Blood Count 6.5 K/mm3 (4.8-10.8)
[2023-11-19 17:28] LABS: HCG Qualitative, Serum Negative (Negative)
--- NOTE | 2023-11-19 17:29 | PC.NURSE ---
advised rad pt preg test was negative and she was ready for ct
--- NOTE | 2023-11-19 17:59 | PC.NURSE ---
pt returned from CT
[2023-11-19] MEDS: SODIUM CHLORIDE 0.9% 10ML SYR (RAD ONLY) 10 ML IV (18:01)
[2023-11-19] MEDS: IOPAMIDOL-370 (76%);100ML BOTTLE 75 ML IV (18:01)
[2023-11-19 18:59] VITALS: BP 110/68; PULSE 88; RESP 18; TEMP 36.6; O2SAT 99
== END 2023-11-19 19:01 | disposition home or self-care (01) ==
PROVIDERS: Student in an Organized Health Care Education/Training Program; Emergency Provider Emergency Medicine
DX: N83.202 Unspecified ovarian cyst, left side (principal); N39.0 Urinary tract infection, site not specified; R10.31 Right lower quadrant pain; R10.32 Left lower quadrant pain
CPT/HCPCS: 74177; 80053; 81001; 84703; 85025; 87086; 99285; Q9967

== ENCOUNTER 2023-11-22 19:42 | Emergency (ER) | payer OTHER, SELFPAY ==
[2023-11-22] VITALS (7 sets, daily range): BP systolic 112–121; BP diastolic 51–79; PULSE 80–121; RESP 14–20; TEMP 36.7–37.2; O2SAT 95–99; BMI 23.3
--- NOTE | 2023-11-22 20:29 | HMH.EDGENADL ---
Discharge Plan Disposition Patient Disposition: Home, Self-Care Prescriptions Prescriptions: New cefdinir 300 mg capsule 300 mg PO BID 10 Days Qty: 20 0RF No Action cholecalciferol (vitamin D3) [Vitamin D3] 25 mcg (1,000 unit) Tablet 25 mcg PO DAILY ferrous sulfate [FeroSul] 325 mg (65 mg iron) tablet 325 mg PO DAILY nitrofurantoin monohyd/m-cryst 100 mg capsule 100 mg PO BID 5 Days Qty: 10 0RF Rx Instructions: must administer with a meal/food Referrals Follow up/Referrals: Provider,Referral, MD [Primary Care Provider] - See instructions Activity Restrictions/Add. Instructions Additional Instructions/Restrictions: The majority of her symptoms today are likely secondary to COVID-19 however given the fact that he was recently diagnosed with a urinary tract infection and still have evidence of this on your urinalysis today and that your symptoms worsened with pain and tenderness of your kidneys we will treat you for presumed a sending infection, pyelonephritis. Please do not take your nitrofurantoin as this is not a good medication for kidney penetration and instead changed to the cefdinir which was prescribed and sent to [facility] pharmacy. Return with any worsening concerns or symptoms. Otherwise you may take Tylenol and ibuprofen as needed for for symptoms to treat your COVID/viral related symptoms including headache. Clinical Impressions Clinical Impression: Myalgia, Lower back pain, Headache, Pyelonephritis, COVID-19 Instructions Patient Instructions: DI for Low Back Pain Discharge ED Provider: Jaydon Maguire General Adult HPI General Chief complaint: Back Pain/Injury Stated complaint: body aches,headache,back pain Time Seen by Provider: 11/22/23 20:18 Mode of Arrival: Ambulatory Source of Information: Patient Limitations: No Limitations Description of Symptoms (Recalled from ER Triage Doc. by RN): 33 year old female with complaints of bilateral lower back pain. Patient states she was at this emergency department 2 days ago with same complaints and was diagnosed with ruptured cyst and was discharged with antibiotics. Patient states she got the medication today and took the first dose and shortly after the pain returned 10/10 since 2PM this afternoon. History of Present Illness HPI narrative: Patient is a 33-year-old female whom I saw a few days ago in the emergency department and diagnosed her with a urinary tract infection and a ruptured ovarian cyst who presents today with multiple different complaints at this point. States that it took her almost 2 days to get her antibiotics filled and since that time she really has no worsening lower abdominal pain but pain in her lower back and her upper back headache and diffuse myalgias have gotten worse. No respiratory symptoms she does have a little bit of a left earache. No sore throat. No high fever. She did take her first dose of antibiotics earlier today. Still has a little bit lower abdominal discomfort but denies any significant worsening of that. No traveling outside the country no tick bites or rashes noted. No neck stiffness photophobia. Related Data Home Medications Medication Instructions Recorded Confirmed cholecalciferol (vitamin D3) 25 25 mcg PO DAILY Supplement 05/08/23 11/22/23 mcg (1,000 unit) tablet (Vitamin D3) ferrous sulfate 325 mg (65 mg 325 mg PO DAILY Supplement 05/08/23 11/22/23 iron) tablet (FeroSul) Previous Rx's Medication Instructions Recorded nitrofurantoin 100 mg PO BID 5 days #10 caps 11/19/23 monohydrate/macrocrystals 100 mg capsule cefdinir 300 mg capsule 300 mg PO BID 10 days #20 caps 11/22/23 Allergies Allergy/AdvReac Type Severity Reaction Status Date / Time No Known Allergies Allergy Verified 07/01/23 10:08 [facility] Disclaimer: The information contained in this section may have been updated after the patient was seen, as this information can be updated by other users. Social History Smoking Status: Never smoker alcohol intake: never substance use type: denies use current occupational status: employed Travel in the last 8 weeks: None ROS Obtained: Yes All systems reviewed & no additional complaints except as documented Physical Exam General General appearance: alert and in no apparent distress Head Head exam: atraumatic and normocephalic Neck Neck exam: Absent meningismus Respiratory Respiratory exam: Present normal lung sounds bilaterally; Absent respiratory distress Cardiovascular Cardiovascular exam: Present regular rate; Absent tachycardia Abdominal Exam Abdominal exam: Present soft and tenderness (There is some slight tenderness in the lower abdomen improved from last time I examined her a few days ago) Back Exam Back exam: Present CVA tenderness (R) and CVA tenderness (L) Neurological Exam Neurological exam: Present alert and oriented X3 Medical Decision Making Black Inquiry Pt receiving controlled substance: No Vital Signs: 11/22/23 19:54 11/22/23 19:52 11/22/23 20:00 Temperature 98.9 F Temperature Source Oral Pulse Rate 110 H 121 H Pulse Rate [Left Radial] 105 H Respiratory Rate 18 18 20 Blood Pressure 114/73 121/79 Blood Pressure [Right Arm] 114/73 Blood Pressure Mean 90 90 Blood Pressure Mean [Right Arm] 86 02 Sat by Pulse Oximetry 98 99 98 Oxygen Delivery Method Room Air Room Air Room Air Lab Data Lab results reviewed: Yes I reviewed the patient's lab results. Lab Results 11/22/23 20:32: Urine Color Yellow, Urine Appearance Clear, Urine pH 6.5, Ur Specific [place] <= 1.005, Urine Protein Negative, Urine Glucose (UA) Negative, Urine Ketones Negative, Urine Blood Negative, Urine Nitrate Negative, Urine Bilirubin Negative, Urine Urobilinogen 0.2, Ur Leukocyte Esterase 3+ A 11/22/23 20:44: WBC 5.7, RBC 4.87, Hgb 15.2, Hct 43.3, MCV 88.8, MCH 31.1, MCHC 35.1, RDW 12.8, Plt Count 183, MPV 9.0, Neut % (Auto) 81.3 H, Lymph % (Auto) 7.7 L, [place] % (Auto) 7.9, Eos % (Auto) 2.4, Baso % (Auto) 0.6, Neut # (Auto) 4.6, Lymph # (Auto) 0.4 L, [place] # (Auto) 0.5, Eos # (Auto) 0.1, Baso # (Auto) 0.0, Sodium 136, Potassium 3.8, Chloride 101, Carbon Dioxide 24, Anion Gap 14.8, BUN 6 L, Creatinine 0.70, Estimated Creat Clear 110, Estimated GFR 96, Est GFR ( Amer) 116, Glucose 73 L, Lactate 1.2, Calcium 9.4, Total Bilirubin 0.6, AST 34, ALT 22, Alkaline Phosphatase 86, Total Creatine Kinase 55, Troponin I < 0.01, Total Protein 8.8 H, Albumin 5.0, Globulin 3.8 H, Albumin/Globulin Ratio 1.3, SARS-CoV-2 (PCR) Detected A, Influenza A Untype (PCR) Not detected, Influenza Type B (PCR) Not detected 11/22/23 20:44 11/22/23 20:44 Orders (Tests/Meds): ED MEDICATIONS Generic Name Dose Route Start Last Admin Trade Name Freq PRN Reason Stop Dose Admin Lactated Ringer's 1,000 mls @ 999 mls/hr 11/22/23 20:30 11/22/23 20:50 Lactated Ringer's 1000 Ml Bag IV 11/22/23 21:30 999 mls/hr .Q1H1M JIGAR Administration Discontinued Medications Generic Name Dose Route Start Last Admin Trade Name Freq PRN Reason Stop Dose Admin Cefdinir 300 mg 11/22/23 21:27 Cefdinir 300mg Capsule PO 11/22/23 21:28 ONCE ONE Diphenhydramine HCl 25 mg 11/22/23 20:27 11/22/23 20:51 Diphenhydramine 50mg/Ml Vial IV 11/22/23 20:28 25 mg ONCE ONE Administration Ketorolac Tromethamine 15 mg 11/22/23 20:27 11/22/23 20:50 Ketorolac 30mg/Ml Vial IV 11/22/23 20:28 15 mg ONCE ONE Administration Prochlorperazine Edisylate 10 mg 11/22/23 20:27 11/22/23 20:51 Prochlorperazine 10mg/2ml Vial IV 11/22/23 20:28 10 mg ONCE ONE Administration ORDERS Category Date Time Status CBC w/Auto Diff [Complete Blood Count Auto Diff] Stat Lab 11/22/23 20:44 Completed CK [Creatine Kinase] Stat Lab 11/22/23 20:44 Completed CMP [Comprehensive Metabolic Panel] Stat Lab 11/22/23 20:44 Completed Lactic Acid Stat Lab 11/22/23 20:44 Completed Rapid PCR Covid and Flu A/B Stat Lab 11/22/23 20:44 Completed Trop I [Troponin I] Stat Lab 11/22/23 20:44 Completed Troponin I Q3H Lab 11/22/23 23:30 Ordered Troponin I Q3H Lab 11/23/23 02:30 Ordered UA [Urinalysis and Microscopic] Stat Lab 11/22/23 20:32 Results Blood Culture Stat Micro 11/22/23 21:00 Received Urine Culture Stat Micro 11/22/23 20:32 Received Medical Decision Narrative: Patient is a 33-year-old female presents today as a bounce back from a recent emergency department visit where she was diagnosed with a ruptured ovarian cyst and a urinary tract infection. Does have some mild CVA tenderness today could be disseminated urinary tract infection with sepsis and bacteremia, also likely has a superimposed viral infection given the fact that she has headache myalgias throughout her entire body with a really nonfocal exam. From a vital sign standpoint she is tachycardic we will give IV fluids and migraine cocktail which would include Toradol Compazine and Benadryl. Will not repeat a CT scan of her abdomen as I do not suspect that there is any significant worsening of that. Right now she is very comfortable has very benign abdominal exam. Blood cultures have been sent. Respiratory exam is normal pulmonary auscultation his exam is normal as well. No indication for imaging of the chest at the moment. COVID and flu have been sent will reassess after this initial workup and therapeutic intervention has been done. Reassessment 929 patient looking much better and feeling significantly better as well. COVID-19 test is positive she has no significant comorbidities will not treat with antiviral medication and treatment will be supportive. Urinalysis is still positive as well she has not taken her medicine which I prescribed you today which was nitrofurantoin at this point she has some CVA tenderness and has systemically become ill and even though I believe the majority of her symptoms are secondary to COVID-19 we will treat for presumptive pyelonephritis in this particular case we will switch her antibiotic from nitrofurantoin to cefdinir first dose given in the emergency department which they are aware of. Return precautions discussed she was discharged in improved and stable condition. Critical Care Critical Care Time Critical Care Time: No
[2023-11-22] MEDS: KETOROLAC 30MG/ML VIAL 15 MG IV (20:50)
[2023-11-22] MEDS: LACTATED RINGERS 1000ML 1,000 ML 999 ML IV (20:50)
[2023-11-22] MEDS: PROCHLORPERAZINE 10MG/2ML VIAL 10 MG IV (20:51)
[2023-11-22] MEDS: diphenhydrAMINE 50MG/ML VIAL 25 MG IV (20:51)
[2023-11-22 20:53] LABS: Influenza A, PCR Not Detected (NotDetected); Influenza B, PCR Not Detected (NotDetected)
[2023-11-22 20:53] LABS: Microscopic, Urine URINE MICROSCOPIC (MICROSCOPIC)
[2023-11-22 20:58] LABS: Basophils % 0.6 % (0.1-2.0); Eosinophils # 0.1 K/mm3 (0.0-0.4); Eosinophils % 2.4 % (0.1-12.0); Hematocrit 43.3 % (37.0-47.0); Hemoglobin 15.2 g/dL (12.2-16.2); Lymphocytes # 0.4 K/mm3 (0.7-4.5); Lymphocytes % 7.7 % (10-50); Mean Corpuscular HGB Conc 35.1 g/dL (31.8-35.4); Mean Corpuscular Hemoglobin 31.1 pg (27.0-31.2); Mean Corpuscular Volume 88.8 fl (81-99); Monocytes # 0.5 K/mm3 (0.1-1.0); Monocytes % 7.9 % (1.7-9.3); Neutrophils # 4.6 K/mm3 (1.8-7.8); Neutrophils % 81.3 % (37.0-80.0); Platelet Count 183 K/mm3 (142-424); Red Blood Count 4.87 M/mm3 (4.20-5.40); Red Cell Distribution Width 12.8 % (11.5-17.5); White Blood Count 5.7 K/mm3 (4.8-10.8)
[2023-11-22 20:58] LABS: Appearance,Urine CLEAR (Clear); Bilirubin,Urine Negative (Negative); Blood, Urine Negative (Negative); Color,Urine YELLOW (Yellow); Glucose,Urine (UA) Negative (Negative); Ketones,Urine Negative (Negative); Leukocyte Esterase,Urine 3+ (Negative); Nitrate,Urine Negative (Negative); PH,Urine 6.5 (5.0-8.5); Protein,Urine Negative (Negative); Specific Gravity, Urine <= 1.005 (1.005-1.030); Urobilinogen,Urine 0.2 EU/dl (0.2)
[2023-11-22 20:59] LABS: Chloride 101 mmol/L (98-107)
[2023-11-22 21:00] LABS: Potassium 3.8 mmoL/L (3.5-5.1); Sodium 136 mmol/L (136-145)
[2023-11-22 21:02] LABS: Alanine Aminotransferase 22 U/L (12-78); Alkaline Phosphatase 86 U/L (38-126); Anion Gap 14.8 mEq/L (5-15); Aspartate Amino Transferase 34 U/L (14-36); Bilirubin,Total 0.6 mg/dl (0.2-1.3); Blood Urea Nitrogen 6 mg/dl (7-17); Carbon Dioxide 24 mmol/L (22.0-30.0); Creatine Kinase 55 U/L (30-135); Creatinine Clearance Estimated 110 mL/min (50-200); Estimated Glomerular Filt Rate 96 ml/min (>60); GFR (African American) 116 ML/MIN (>60)
[2023-11-22 21:03] LABS: Albumin/Globulin Ratio 1.3 (1.1-1.8); Calcium 9.4 mg/dl (8.4-10.2); Globulin 3.8 g/dL (1.3-3.2); Glucose 73 mg/dl (74-100); Lactic Acid 1.2 mmol/L (0.7-2.1); Total Protein,Serum 8.8 g/dl (6.3-8.2)
[2023-11-22 21:16] LABS: Coronavirus 19, PCR Detected (NotDetected)
[2023-11-22 21:17] LABS: Troponin I < 0.01 ng/ml (0.00-0.034)
--- NOTE | 2023-11-22 21:26 | PC.NURSE ---
Patient demanding IV to be removed. IV removed per request. IV meds given except Fluids. Dr. Maguire notified.
[2023-11-22] MEDS: CEFDINIR 300MG CAPSULE 300 MG PO (21:33)
[2023-11-22 22:03] LABS: Bacteria,Urine Trace /lpf
--- NOTE | 2023-11-26 15:30 | PC.NURSE ---
Reviewed pt urine culture with Dr. Ibarra. Stated it was a contaminated specimen. no action needed at this time
== END 2023-11-22 21:43 | disposition home or self-care (01) ==
PROVIDERS: Emergency Provider Student in an Organized Health Care Education/Training Program
DX: U07.1 COVID-19 (principal); R51.9 Headache, unspecified; M54.50 Low back pain, unspecified; N12 Tubulo-interstitial nephritis, not specified as acute or chronic
CPT/HCPCS: 36415; 80053; 81001; 82550; 83605; 84484; 85025; 87040; 87086; 87636; 96374; 96375; 99285

== ENCOUNTER 2025-05-21 11:14 | Outpatient (CLI) | payer OTHER, SELFPAY ==
[2025-05-22 07:01] LABS: Progesterone 15.8 ng/mL (.)
== END 2025-05-21 23:59 | disposition home or self-care (01) ==
LOC: LAB 11:15
PROVIDERS: PCP Nurse Practitioner Family; Visit Provider Nurse Practitioner Obstetrics & Gynecology
DX: Z32.01 Encounter for pregnancy test, result positive (principal)
CPT/HCPCS: 36415; 84144; 84702

== ENCOUNTER 2025-06-15 14:13 | Outpatient (CLI) | payer SELFPAY ==
--- NOTE | 2025-06-15 14:45 | US_ITS ---
PROCEDURE: US OB <= 14 WEEKS FETUS CLINICAL INDICATION: Dates and Viability COMPARISON: No exams were available for comparison FINDINGS: Transvaginal sonographic images of the pelvis were obtained. From her last menstrual period she is 9weeks 4days. An intrauterine gestational sac is present with a pole with a crown-rump length of 3.66cm This correlates to a gestational age of 10weeks 4days. 01/07/2026 heart tones are present with an FHR of 165bpm. Yolk sac is noted. The yolk sac measures 7.0 mmmm. The right ovary is seen and appears normal. The left ovary is seen and appears normal. There is a corpus luteum measuring 2.0 cm x 1.6 cm x 2.6 cm There is no fluid in the cul-de-sac. IMPRESSION: 1. Viable embryo within the uterine cavity. heart rate activity is seen. 2. The embryo measures 10 weeks and 4 days and we will revise her dates to reflect this. Her new due date will be 01/07/2026. 3. Both ovaries are seen and appear normal. There is a corpus luteum in the left ovary. 4. No fluid in the cul-de-sac. Dictated by: Timur Mendoza MD 06/16/2025 13:16 Timur Mendoza MD in [facility] 06/16/2025 13:16
[2025-06-15 15:01] LABS: Hematocrit 30.5 % (37.0-47.0); Hemoglobin 9.4 g/dL (12.2-16.2); Immature Granulocytes % 0.4 %; Mean Corpuscular HGB Conc 30.8 g/dL (31.8-35.4); Mean Corpuscular Hemoglobin 22.4 pg (27.0-31.2); Mean Corpuscular Volume 72.6 fl (81-99); Nucleated Red Blood Cells % 0 %; Platelet Count 280 K/mm3 (142-424); Red Blood Count 4.20 M/mm3 (4.20-5.40); Red Cell Distribution Width-SD 40.7 fL; White Blood Count 7.7 K/mm3 (4.8-10.8)
[2025-06-15 16:14] LABS: Hepatitis C Ab Qual. W/ RFX NEGATIVE (Negative)
[2025-06-16 05:48] LABS: Hepatitis B Surface Antigen Negative (Negative); Rubella Antibodies, IgG 24.60 index (Immune >0.99)
[2025-06-16 12:08] LABS: RPR W/RFX Titers Nonreactive (Nonreactive)
== END 2025-06-15 23:59 | disposition home or self-care (01) ==
LOC: RAD 14:14
PROVIDERS: PCP Nurse Practitioner Family; Visit Provider Nurse Practitioner Obstetrics & Gynecology
DX: O36.80X0 Pregnancy with inconclusive fetal viability, not applicable or unspecified (principal); Z3A.10 10 weeks gestation of pregnancy
CPT/HCPCS: 36415; 76801; 80074; 85025; 86592; 86762; 86850; 87340; 87389

== ENCOUNTER 2025-07-20 13:27 | Emergency (ER) | payer OTHER, SELFPAY ==
[2025-07-20 13:30] VITALS: BP 134/74; PULSE 100; RESP 18; TEMP 36.8; O2SAT 100; BMI 23.0
--- NOTE | 2025-07-20 13:42 | ED_ITS ---
<Statement entered by Jeff Morel MD - 07/22/25 03:07> I was consulted by the JERRICA, and we discussed the complexity of the problems being addressed. I approve the treatment and management plan for this patient's care in the emergency department, thus performing a substantive portion of the medical decision making. Jeff Morel MD Discharge Plan Disposition Patient Disposition: Home, Self-Care Prescriptions Prescriptions: New cephalexin 500 mg capsule 500 mg PO BID 10 Days Qty: 20 0RF No Action DHA 200 mg capsule 200 mg PO DAILY Patient Comments: TAKE ONE CAPSULE BY MOUTH EVERY DAY Referrals Follow up/Referrals: Timur Mendoza MD [Staff Physician, [employer]] - See instructions Birgit Cook APRN [Primary Care Provider, Medical] - See instructions Activity Restrictions/Add. Instructions Additional Instructions/Restrictions: Increase fluids and rest. Please keep your follow-up appointment at your DIRECTOR OF MEDICAL EDUCATION. Take antibiotic as prescribed and to its entirety. Clinical Impressions Clinical Impression: UTI (urinary tract infection) Instructions Patient Instructions: DI for Urinary Tract Infection (UTI), DI for Vaginal Bleeding Print Language Print Language: Syriac Discharge ED Provider: Jeff Morel General Adult HPI General Chief complaint: Vaginal Bleeding Stated complaint: 15 weeks /light bleeding Time Seen by Provider: 07/20/25 13:36 Mode of Arrival: Ambulatory Source of Information: Patient Description of Symptoms (Recalled from ER Triage Doc. by RN): patient reports to the ED for vaginal bleeding. Janice is 15 weeks . Alyssaetn states there is only blood when she wipes after using the bathroom. No clots being passed. paitent states is really dark and slimy . History of Present Illness HPI narrative: 35-year-old female presents to the ED today for vaginal bleeding since this morning. She states that every time she wipes she has had brownish colored blood. States she called the OB office that she goes to and the line was busy so she did not call back. She has had no abdominal pain, no dysuria. She denies fevers, chills, nausea or vomiting. Patient is approximately 15 weeks . She did have some bleeding last week as well. She went and saw Dr. Lopez because Emil was out of the office. She says that it was twice and then stopped completely. Patient tells us that she does not want lab work drawn because she had lab work recently. But I discussed with her that she needs to have lab work today due to the risks and possible changes in her lab work since 06/15/2025. Related Data Home Medications ?Medication ?Instructions ?Recorded ?Confirmed docosahexaenoic acid 200 mg 200 mg PO DAILY 07/20/25 0 07/20/25 capsule ( DHA) Previous Rx's ?Medication ?Instructions ?Recorded cephalexin 500 mg capsule 500 mg PO BID 10 days #20 ca ps 07/20/25 Allergies Allergy/AdvReac Type Severity Reaction Status Date / Time No Known Allergies Allergy Verified 07/13/25 13:52 [facility] Disclaimer: The information contained in this section may have been updated after the patient was seen, as this information can be updated by other users. Medical History No significant past medical history Surgical History No significant past surgical history Social History Smoking Status: Never smoker alcohol intake: never substance use type: denies use current occupational status: employed Travel in the last 8 weeks?: None Have you lived/traveled outside [place] in past 30 days?: No Contact w/someone who lives/traveled outside US past 30 days?: No Exposure to someone with infectious disease in past 14 days?: No Do you have a fever (greater than 100.4 F or 38 C)?: No Have you tested positive for COVID-19?: No Exposed to someone with COVID-19 in past 14 days?: No Do you have a sore throat?: No Do you have a cough?: No Do you have any weakness?: No Do you have any diarrhea?: No Are you experiencing any unusual bleeding?: Yes Do you have any muscle aches/pain?: No Do you have any abdominal pain?: No Are you experiencing loss of taste or smell?: No Other Medical History Have you received the Flu Vaccine for this season: No Have you received the Pneumonia Vaccine: No ROS Obtained: Yes Systems reviewed as appropriate & no additional complaints except as documented Constitutional Constitutional: Reports as per HPI Physical Exam General General appearance: alert and in no apparent distress Head Head exam: normocephalic Eye Eye exam: Present PERRL and EOMI ENT ENT exam: Present normal oropharynx and mucous membranes moist Neck Neck exam: Present full ROM and trachea midline Respiratory Respiratory exam: Present normal lung sounds bilaterally Cardiovascular Cardiovascular exam: Present regular rate, normal rhythm, normal heart sounds, +S1 and +S2 Extremities Exam Extremities exam: Present normal inspection, full ROM and normal capillary refill Neurological Exam Neurological exam: Present alert and oriented X3 Skin Skin exam: Present warm, dry and intact Medical Decision Making Medical Records Screening: Per USPSTF and CDC recommendations, given the prevalence of disease in our region, it is our hospital?s policy to screen for HIV and viral Hepatitis for all patients aged 18 and over and those with ongoing risk factors. Black Inquiry Pt receiving controlled substance: No Black was queried for this patient: No Vital Signs: 07/20/25 13:30 07/20/25 16:11 Temperature 98.3 F 98.2 F Temperature Source Oral Pulse Rate 77 Pulse Rate [Right Radial] 100 H Respiratory Rate 18 16 Blood Pressure 113/67 Blood Pressure [Right Arm] 134/74 Blood Pressure Mean [Right Arm] 94 Blood Pressure Source [Right Arm] Automatic Cuff Blood Pressure Position [Right Arm] Sitting 02 Sat by Pulse Oximetry 100 Oxygen Delivery Method Room Air Lab Data Lab Results 07/20/25 13:47: Urine Color Yellow, Urine Appearance Clear, Urine pH 6.5, Ur Specific [place] 1.010, Urine Protein Negative, Urine Glucose (UA) Negative, Urine Ketones Negative, Urine Blood 3+ A, Urine Nitrate Negative, Urine Bilirubin Negative, Urine Urobilinogen 0.2, Ur Leukocyte Esterase 1+ A, Urine RBC 3-5, Urine WBC 10-20, Ur Squamous Epith Cells 10-20, Urine Bacteria 2+ 07/20/25 14:45: WBC 7.7, RBC 4.12 L, Hgb 8.9 L, Hct 29.6 L, MCV 71.8 L, MCH 21.6 L, MCHC 30.1 L, RDW 16.2, Plt Count 266, MPV 10.5 H, Neut % (Auto) 70.0, Lymph % (Auto) 21.2, Butts % (Auto) 6.3, Eos % (Auto) 1.6, Baso % (Auto) 0.5, Neut # (Auto) 5.4, Lymph # (Auto) 1.6, Butts # (Auto) 0.5, Eos # (Auto) 0.1, Baso # (Auto) 0.0, PT 10.3, INR 0.92, Sodium 138, Potassium 3.9, Chloride 108 H, Carbon Dioxide 21 L, Anion Gap 12.9, BUN 5 L, Creatinine 0.40 L, Estimated Creat Clear 187, Estimated GFR 181, Est GFR ( Amer) 219, Glucose 80, Calcium 9.3, Magnesium 1.8, Total Bilirubin 0.5, AST 25, ALT 9 L, Alkaline Phosphatase 76, Total Protein 7.9, Albumin 4.3, Globulin 3.6 H, Albumin/Globulin Ratio 1.2, Lipase 104, Blood Type O Positive 07/20/25 14:45 07/20/25 14:45 Orders (Tests/Meds): ORDERS Category Date Time Status ABO/RH Type Stat BBK 07/20/25 14:45 Completed CBC [Complete Blood Count Auto Diff] Stat Lab 07/20/25 14:45 Completed Comprehensive Metabolic Panel Stat Lab 07/20/25 14:45 Completed HCG,Quantitative Stat Lab 07/20/25 14:45 Received Lipase Stat Lab 07/20/25 14:45 Completed Magnesium Stat Lab 07/20/25 14:45 Completed PT INR [Prothrombin Time INR] Stat Lab 07/20/25 14:45 Completed Urinalysis and Microscopic Stat Lab 07/20/25 13:47 Completed Urine Culture Stat Micro 07/20/25 13:47 Received US OB >= 14 weeks Fetus Stat Ultrasound 07/20/25 13:43 Completed Medical Decision Narrative: patient is a 35-year-old female presenting to the emergency department for evaluation of evaluation of vaginal bleeding at 15 weeks . Patient is hemodynamically stable and nontoxic-appearing upon arrival, afebrile. Differential diagnosis includes urinary tract infection, normal bleeding, miscarriage, among others. Workup will be conducted with hematologic labs, specific imaging. Patient does have a UTI which she will be treated for with antibiotics. Also discussed with patient that she needs to take the entire course of antibiotics as she discussed with myself and nursing staff that she has had a UTI the entire and she just takes her antibiotic when she feels burning with urination. I discussed with her that this is not the proper way to take the antibiotic as it is dangerous for her to have an infection her entire . Nursing staff also discussed this with her. Patient also has an hemoglobin of 8.9. Otherwise labs were unremarkable. Patient's ultrasound showed a small subchorionic hemorrhage but shows gestation of 16 weeks. Please see formal read from radiology. I did discuss this case with Dr. Latif who wants her on pelvic rest, treated for UTI and to follow-up with her DIRECTOR OF MEDICAL EDUCATION at her normal scheduled appointment in about 2 weeks. Patient is safe for discharge home with follow- up. Critical Care Critical Care Time Critical Care Time: No
--- NOTE | 2025-07-20 13:43 | US_ITS ---
PROCEDURE INFORMATION: Exam: US , Limited Exam date and time: 07/20/2025 1:48 PM Age: 35 years old Clinical indication: Lmp or gestational age (in weeks): 15w4d; Other: Vaginal bleeding; LABS AND CLINICAL REPORTS: Gestational age (Established): 15 w 4 d Estimated due date (Established): 01/07/2026 TECHNIQUE: Imaging protocol: Real-time ultrasound of the maternal uterus with image documentation. Exam focused on the clinical indication. COMPARISON: US OB <= 14 WEEKS FETUS 06/15/2025 2:34 PM FINDINGS: Gestation: A normal intrauterine is present in a vertex presentation. heart rate: 149 bpm Placenta: Posterior elliptical hypoechoic region measuring 2 x 3.8 cm on image 31 probably represents a subchorionic hemorrhage cephalad to the cervix. BIOMETRY: Gestational age (AUA): 16 w 1 d Estimated due date (AUA): 01/03/2026 Estimated weight: 139.7 g. EFW by AC, BPD, FL, HC, [place] 1985. 65 % percentile Biparietal diameter (BPD): 3.29 cm. EGA (BPD) is 16 w 2 d. 77 % percentile Head circumference (HC): 11.87 cm. EGA (HC) is 15 w 6 d. 51 % percentile Abdominal circumference (AC): 9.6 cm. EGA (AC) is 15 w 5 d. 57 % percentile Femur length (FL): 2.07 cm. EGA (FL) is 16 w 1 d. 70 % percentile HC/AC: 1.24 FL/BPD: 0.63 FL/AC: 0.22 MATERNAL: Cervix: Cervical length measures 3.15 cm. Other findings: There is no evidence of cervical funneling. The placenta is located posteriorly and is normal. IMPRESSION: 1. There is no evidence of cervical funneling. 2. Posterior elliptical hypoechoic region measuring 2 x 3.8 cm on image 31 probably represents a subchorionic hemorrhage cephalad to the cervix. 3. The placenta is located posteriorly and is normal.
--- NOTE | 2025-07-20 13:55 | PC.NURSE ---
Pt to US w/ RAD staff
[2025-07-20 14:11] LABS: Microscopic, Urine URINE MICROSCOPIC (MICROSCOPIC)
[2025-07-20 14:13] LABS: Bilirubin,Urine Negative (Negative); Color,Urine YELLOW (Yellow); Glucose,Urine (UA) Negative (Negative); Ketones,Urine Negative (Negative); Leukocyte Esterase,Urine 1+ (Negative); PH,Urine 6.5 (5.0-8.5); Protein,Urine Negative (Negative); Specific Gravity, Urine 1.010 (1.005-1.030); Urobilinogen,Urine 0.2 EU/dl (0.2)
[2025-07-20 14:35] LABS: Bacteria,Urine 2+ /lpf
[2025-07-20 15:01] LABS: Hematocrit 29.6 % (37.0-47.0); Hemoglobin 8.9 g/dL (12.2-16.2); Immature Granulocytes % 0.4 %; Mean Corpuscular HGB Conc 30.1 g/dL (31.8-35.4); Mean Corpuscular Hemoglobin 21.6 pg (27.0-31.2); Mean Corpuscular Volume 71.8 fl (81-99); Nucleated Red Blood Cells % 0 %; Platelet Count 266 K/mm3 (142-424); Red Blood Count 4.12 M/mm3 (4.20-5.40); Red Cell Distribution Width-SD 41.5 fL; White Blood Count 7.7 K/mm3 (4.8-10.8)
[2025-07-20 15:17] LABS: INR 0.92 (0.9-1.1); Prothrombin Time 10.3 seconds (10.1-12.5)
[2025-07-20 15:23] LABS: Albumin Level 4.3 g/dl (3.5-5.0); Chloride 108 mmol/L (98-107); Potassium 3.9 mmoL/L (3.5-5.1); Sodium 138 mmol/L (136-145)
[2025-07-20 15:25] LABS: Lipase 104 U/L (23-300)
[2025-07-20 15:26] LABS: Alanine Aminotransferase 9 U/L (12-78); Albumin/Globulin Ratio 1.2 (1.1-1.8); Alkaline Phosphatase 76 U/L (38-126); Anion Gap 12.9 mEq/L (5-15); Aspartate Amino Transferase 25 U/L (14-36); Bilirubin,Total 0.5 mg/dl (0.2-1.3); Blood Urea Nitrogen 5 mg/dl (7-17); Carbon Dioxide 21 mmol/L (22.0-30.0); Creatinine Clearance Estimated 187 mL/min (50-200); Creatinine,Serum 0.40 mg/dl (0.52-1.04); Estimated Glomerular Filt Rate 181 ml/min (>60); GFR (African American) 219 ML/MIN (>60); Globulin 3.6 g/dL (1.3-3.2); Magnesium 1.8 mg/dl (1.6-2.3); Total Protein,Serum 7.9 g/dl (6.3-8.2)
[2025-07-20 15:27] LABS: Calcium 9.3 mg/dl (8.4-10.2); Glucose 80 mg/dl (74-100)
--- NOTE | 2025-07-20 15:43 | PC.NURSE ---
la on phone with dr maldonado
[2025-07-20 16:11] VITALS: BP 113/67; PULSE 77; RESP 16; TEMP 36.8; O2SAT 99
== END 2025-07-20 16:12 | disposition home or self-care (01) ==
PROVIDERS: Nurse Practitioner; Emergency Provider Student in an Organized Health Care Education/Training Program; PCP Nurse Practitioner Family
DX: O23.41 Unspecified infection of urinary tract in pregnancy, first trimester (principal); Z3A.15 15 weeks gestation of pregnancy
CPT/HCPCS: 76805; 80053; 81001; 83690; 83735; 84702; 85025; 85610; 86900; 86901; 87086; 99283; 99284

== ENCOUNTER 2025-08-25 10:10 | Outpatient (CLI) | payer SELFPAY ==
--- NOTE | 2025-08-25 10:16 | US_ITS ---
PROCEDURE: US OB /MATERNAL DETAIL CLINICAL INDICATION: schedule 20wk anatomy scan COMPARISON: US US OB <= 14 WEEKS FETUS from 06/15/2025 US US OB >= 14 WEEKS FETUS from 07/20/2025 FINDINGS: Transabdominal sonographic images of the pelvis were obtained. From her established due date she is 20 weeks 5 days. Single viable intrauterine gestation. Cephalic position. Placenta: Posteriorplacenta grade 1. There is a placental Masters. There is a collection of fluid inferior to the placental under the membranes that measures 3.47 cm x 1.07 cm. This was previously seen at 15 weeks and has slightly diminished in size. There is an average amount of fluid. The cervix appears satisfactory. Closed and measuring 4.09 cm in length. Complete survey performed and was unremarkable on the submitted images as in PACS. No discrete anomalies identified on survey imaging by technologist. Active fetus. Three-vessel cord with satisfactory umbilical cord insertion. 4- chamber heart noted. Situs, aortic arch, LVOT, RVOT, three-vessel view appear normal. Survey of brain & ventricles Unremarkable. Cerebellum, thalamus, choroid plexus, cisterna magna appear normal. Face and neck survey unremarkable. Profile, nasion, lips and nose appeared normal. Diaphragm and chest views unremarkable. Abdomen: Both kidneys noted and unremarkable. Stomach and bladder noted and satisfactory. Spine: Survey of the spine satisfactory with no anomalies identified nor imaged. Cervical, thoracic, lower spine appear normal. Both arms and legs noted. Amniotic Fluid: Adequate. MVP 3.62 cm Measurements: Average ultrasound age 20weeks 6days. Estimated due date by ultrasound age 0201/06/2026. Estimated weight 388g BPD = 20weeks 6days HC = 20weeks 2days AC = 20weeks 6days FL = 21weeks 3days Growth Percentile= 58 Heart Rate = 133bpm Cerebellum = 20weeks 4days Humerus = 21weeks 1day HC/AC is 1.14 FL/BPD is 0.73 FL/AC is 0.23 IMPRESSION: 1. Viable fetus in the cephalic presentation with posterior placenta grade 1. 2. There is an area inferior to the placenta under the membranes that measures 3.47 x 1.07 cm. This was previously seen at 15 weeks and was thought to be a small collection of blood. There is no flow in this area. It has diminished in size. 3. The fluid is within normal limits with an MVP 3.62 cm. 4. Anatomical scan appears normal. 5. biometry is consistent with a dates. Dictated by: Timur Mendoza MD 08/25/2025 11:39 Timur Mendoza MD in [place] 08/25/2025 11:39
== END 2025-08-25 23:59 | disposition home or self-care (01) ==
LOC: RAD 10:11
PROVIDERS: PCP Nurse Practitioner Family; Visit Provider Nurse Practitioner Obstetrics & Gynecology
DX: O28.3 Abnormal ultrasonic finding on antenatal screening of mother (principal); O26.852 Spotting complicating pregnancy, second trimester; Z36.3 Encounter for antenatal screening for malformations; Z3A.20 20 weeks gestation of pregnancy
CPT/HCPCS: 76811

== ENCOUNTER 2025-08-30 11:30 | Outpatient (CLI) | payer SELFPAY ==
[2025-08-30 12:03] LABS: Hematocrit 25.6 % (37.0-47.0); Hemoglobin 7.3 g/dL (12.2-16.2); Immature Granulocytes % 0.9 %; Mean Corpuscular HGB Conc 28.5 g/dL (31.8-35.4); Mean Corpuscular Hemoglobin 20.2 pg (27.0-31.2); Mean Corpuscular Volume 70.7 fl (81-99); Nucleated Red Blood Cells % 0 %; Platelet Count 232 K/mm3 (142-424); Red Blood Count 3.62 M/mm3 (4.20-5.40); Red Cell Distribution Width-SD 44.0 fL; White Blood Count 6.9 K/mm3 (4.8-10.8)
[2025-08-30 13:09] LABS: Ferritin 5.77 ng/ml (6.24-137)
== END 2025-08-30 23:59 | disposition home or self-care (01) ==
LOC: LAB 11:31
PROVIDERS: PCP Nurse Practitioner Family; Visit Provider Nurse Practitioner Obstetrics & Gynecology
DX: O09.529 Supervision of elderly multigravida, unspecified trimester (principal); O26.859 Spotting complicating pregnancy, unspecified trimester; Z3A.00 Weeks of gestation of pregnancy not specified
CPT/HCPCS: 36415; 82728; 85025

== ENCOUNTER 2025-09-22 13:28 | Outpatient (CLI) | payer SELFPAY ==
[2025-09-22 13:41] VITALS: BP 113/51; PULSE 109; RESP 20; TEMP 36.5; O2SAT 98
[2025-09-22] MEDS: IRON SUCROSE COMPLEX 300 MG in 0.9 % SODIUM CHLORIDE 250 ML 176.67 MG IV (13:41)
[2025-09-22] MEDS: SODIUM CHLORIDE 0.9% 10ML FLUSH SYRINGE 10 ML IV (13:42)
[2025-09-22 14:51] VITALS: BP 117/67; PULSE 104; RESP 20; O2SAT 98
== END 2025-09-22 23:59 | disposition home or self-care (01) ==
LOC: INF 13:29
PROVIDERS: PCP Nurse Practitioner Family; Visit Provider Nurse Practitioner Obstetrics & Gynecology
DX: O99.019 Anemia complicating pregnancy, unspecified trimester (principal); Z3A.00 Weeks of gestation of pregnancy not specified
CPT/HCPCS: 96365; J1756; J7050

== ENCOUNTER 2025-09-30 09:46 | Outpatient (CLI) | payer SELFPAY ==
[2025-09-30 10:00] VITALS: BP 126/61; PULSE 96; RESP 18; O2SAT 98
[2025-09-30] MEDS: IRON SUCROSE COMPLEX 300 MG in 0.9 % SODIUM CHLORIDE 250 ML 176.67 MG IV (10:00)
[2025-09-30 11:10] VITALS: BP 107/52; PULSE 100; RESP 18; O2SAT 97
== END 2025-09-30 23:59 | disposition home or self-care (01) ==
PROVIDERS: PCP Nurse Practitioner Family; Visit Provider Nurse Practitioner Obstetrics & Gynecology
DX: O99.019 Anemia complicating pregnancy, unspecified trimester (principal); Z3A.00 Weeks of gestation of pregnancy not specified
CPT/HCPCS: 96365; J1756; J7050

== ENCOUNTER 2025-10-06 08:18 | Outpatient (CLI) | payer OTHER, SELFPAY ==
[2025-10-06 08:29] VITALS: BP 116/64; PULSE 98; RESP 18; TEMP 36.6; O2SAT 99
[2025-10-06] MEDS: IRON SUCROSE COMPLEX 300 MG in 0.9 % SODIUM CHLORIDE 250 ML 176.67 MG IV (08:30)
[2025-10-06] MEDS: SODIUM CHLORIDE 0.9% 10ML FLUSH SYRINGE 10 ML IV (08:31)
[2025-10-06 09:51] VITALS: BP 121/69; PULSE 95; RESP 18; O2SAT 99
== END 2025-10-06 23:59 | disposition home or self-care (01) ==
LOC: INF 08:19
PROVIDERS: PCP Nurse Practitioner Family; Visit Provider Nurse Practitioner Obstetrics & Gynecology
DX: O99.019 Anemia complicating pregnancy, unspecified trimester (principal); Z3A.00 Weeks of gestation of pregnancy not specified
CPT/HCPCS: 96365; J1756; J7050

== ENCOUNTER 2025-10-17 11:12 | Outpatient (CLI) | payer OTHER, SELFPAY ==
[2025-10-17 12:30] LABS: Hematocrit 32.7 % (37.0-47.0); Hemoglobin 9.7 g/dL (12.2-16.2); Immature Granulocytes % 1.1 %; Mean Corpuscular HGB Conc 29.7 g/dL (31.8-35.4); Mean Corpuscular Hemoglobin 24.7 pg (27.0-31.2); Mean Corpuscular Volume 83.4 fl (81-99); Nucleated Red Blood Cells % 0 %; Platelet Count 185 K/mm3 (142-424); Red Blood Count 3.92 M/mm3 (4.20-5.40); White Blood Count 5.4 K/mm3 (4.8-10.8)
[2025-10-17 12:41] LABS: Glucose 1 Hour 126 mg/dL (74-100)
[2025-10-17 13:59] LABS: Ferritin 108 ng/ml (6.24-137)
[2025-10-18 10:27] LABS: RPR W/RFX Titers Nonreactive (Nonreactive)
== END 2025-10-17 23:59 | disposition home or self-care (01) ==
PROVIDERS: PCP Nurse Practitioner Family; Visit Provider Nurse Practitioner Obstetrics & Gynecology
DX: O99.012 Anemia complicating pregnancy, second trimester (principal); O26.852 Spotting complicating pregnancy, second trimester; O09.522 Supervision of elderly multigravida, second trimester; D64.9 Anemia, unspecified; Z3A.00 Weeks of gestation of pregnancy not specified
CPT/HCPCS: 36415; 82728; 82947; 85025; 86592